=== PATIENT | female | born 1940 ===

== ENCOUNTER 2021-09-22 01:57 | Observation (INO) | payer MEDICARE ==
[~2021-09-22] VITALS: Ht 170.2 cm; Wt 69.8 kg
[2021-09-22 06:00] VITALS: BP 140/65
[2021-09-22] MEDS ORDERED: heparin 10,000 units/1 ML INJ IV ONE (07:00)
--- NOTE | 2021-09-22 09:25 | NUR ---
PAGER ID: [phone] MESSAGE: GOOD MORNING. WHO IS THE DOCTOR FOR [id number] PAGEN TODAY? JULIO WREN
[2021-09-22] MEDS ORDERED: LEVO125T8 PO (09:32)
[2021-09-22] MEDS ORDERED: ASPI-1265 PO (09:32)
[2021-09-22 11:00] VITALS: BP 117/61
[2021-09-22] MEDS: heparin 25,000 UNIT/250ml bag 250 ML IV SCH ×2 (13:09→18:32)
[2021-09-22] MEDS: heparin 10,000 units/1 ML INJ IV PRN (13:10)
[2021-09-22] MEDS: aspirin 81mg, enteric-coated 1 TAB TABLET.DR PO SCH (13:11)
[2021-09-22] MEDS ORDERED: acetaminophen 325mg tablet PO PRN (13:50)
[2021-09-22] MEDS ORDERED: magnesium hydroxide 30ml (MOM) UD suspension PO PRN (13:50)
[2021-09-22] MEDS ORDERED: mag hydrox/Alum hydrox/simeth 30ml oral suspension PO PRN (13:50)
[2021-09-22] MEDS ORDERED: ondansetron/PF 4mg/2ml inj IV PRN (13:50)
[2021-09-22 15:00] VITALS: BP 105/58
[2021-09-22] MEDS: normal saline 1000ml 1,000 ML IV SCH (16:24)
[2021-09-22] MEDS ORDERED: METF-900 PO (17:44)
[2021-09-22] MEDS ORDERED: LOSA100T57 PO (17:44)
[2021-09-22] MEDS ORDERED: SPIR25TA5 PO (17:44)
[2021-09-22] MEDS ORDERED: CARV25TA2 PO (17:44)
[2021-09-22] MEDS ORDERED: ATOR20TA66 PO (17:44)
[2021-09-22] MEDS: metFORMIN 500mg tablet PO SCH (18:21)
[2021-09-22 19:00] VITALS: BP 126/65
[2021-09-22] MEDS: carVEDilol 12.5mg tablet PO SCH ×2 (20:00→21:21)
[2021-09-22] MEDS: docusate sod 100mg capsule PO SCH (21:21)
[2021-09-22 23:00] VITALS: BP 124/57
[2021-09-23] MEDS: normal saline 1000ml 1,000 ML IV SCH (04:08)
[2021-09-23 06:00] VITALS: BP 122/52
[2021-09-23 07:12] LABS: BASOPHILS # (AUTO) 0.1 X10'3 (0-0.2); BASOPHILS % (AUTO) 1.7 % (0-1); EOSINOPHILS # (AUTO) 0.2 X10'3 (0-0.9); EOSINOPHILS % (AUTO) 4.4 % (0-6); HEMATOCRIT 34.8 % (35.0-45.0); HEMOGLOBIN 11.5 g/dl (12.0-16.0); LYMPHOCYTES # (AUTO) 1.2 X10'3 (1.1-4.8); LYMPHOCYTES % (AUTO) 23.1 % (21-51); MEAN CORPUSCULAR HEMOGLOBIN 30.9 PG (27.0-31.0); MEAN CORPUSCULAR HGB CONC 33.2 g/dL (33.0-36.5); MEAN CORPUSCULAR VOLUME 93.2 FL (78-98); MEAN PLATELET VOLUME 9.6 FL (7.4-10.4); MONOCYTES # (AUTO) 0.6 X10'3 (0-0.9); MONOCYTES % (AUTO) 11.2 % (2-12); NEUTROPHILS # (AUTO) 3.1 X10'3 (1.8-7.7); NEUTROPHILS % (AUTO) 59.6 % (42-75); PLATELET COUNT 217 X10'3 (140-440); RED BLOOD COUNT 3.73 X10'6 (4.20-5.60); RED CELL DISTRIBUTION WIDTH 13.7 % (11.5-14.5); WHITE BLOOD COUNT 5.1 X10'3 (4.5-11.0)
[2021-09-23 07:28] LABS: ALBUMIN 2.8 G/DL (3.4-5.0); ANION GAP 13 (8-16); BLOOD UREA NITROGEN 15 MG/DL (7-18); BUN/CREATININE RATIO 18.3 (6.6-38.0); CALCIUM 8.7 MG/DL (8.5-10.1); CHLORIDE 108 MMOL/L (99-107); CREATININE 0.82 MG/DL (0.40-0.90); GLUCOSE 108 MG/DL (70-104); POTASSIUM 3.7 MMOL/L (3.5-5.1); SODIUM 144 MMOL/L (135-145); TOTAL CARBON DIOXIDE 22.9 MMOL/L (24-32); eGFR 67 ML/MIN
[2021-09-23] MEDS: aspirin 81mg, enteric-coated 1 TAB TABLET.DR PO SCH (07:32)
[2021-09-23] MEDS: carVEDilol 12.5mg tablet PO SCH ×2 (07:32→07:42)
[2021-09-23] MEDS: metFORMIN 500mg tablet PO SCH (07:32)
[2021-09-23] MEDS: docusate sod 100mg capsule PO SCH ×2 (07:32→07:42)
[2021-09-23] MEDS: heparin 10,000 units/1 ML INJ IV PRN (07:35)
[2021-09-23] MEDS ORDERED: spironolactone 25 MG tablet PO SCH (08:00)
[2021-09-23] MEDS ORDERED: losartan 50mg tablet PO SCH (08:00)
[2021-09-23] MEDS ORDERED: atorvastatin 20mg tablet PO SCH (08:00)
[2021-09-23] MEDS ORDERED: levoTHYROXINE 125mcg tablet PO SCH (08:00)
[2021-09-23] MEDS ORDERED: apixaban 5mg tablet PO ONE (10:10)
[2021-09-23] MEDS ORDERED: APIX5TAB3 PO (10:50)
--- NOTE | 2021-09-23 11:30 | NUR ---
Called Luiz in [place] with patient's insurance info. Insurance does not cover Eliquis, but does cover xarelto. Will consult with md about switching.
--- NOTE | 2021-09-23 12:21 | NUR ---
Page Sent PAGER ID: [phone] MESSAGE: RE: Belinda Gaffney. [phone]. Can we switch to Xarelto? Insurance covers Xarelto and not Eliquis.
== END 2021-09-23 15:10 | disposition home or self-care (01) ==
LOC: UNDOADMIN 05:59 → PCU 3S 05:59 → INTOOBSV 13:47
PROVIDERS: ADMIT Family Medicine; ATTEND Family Medicine
DX: I82.412 Acute embolism and thrombosis of left femoral vein (principal); I11.0 Hypertensive heart disease with heart failure; I50.9 Heart failure, unspecified; E11.9 Type 2 diabetes mellitus without complications; Z96.643 Presence of artificial hip joint, bilateral; Z79.899 Other long term (current) drug therapy
CPT/HCPCS: 36415; 80048; 82948; 85025; 85730; 96365; 96366; 96376; G0378; G0379; J1644; J7030